=== PATIENT | female | born 2000 | race Caucasian/White ===

== ENCOUNTER 2022-08-06 22:52 | Emergency (ER) | payer BC, OTHER ==
[2022-08-06] MEDS ORDERED: diphenhydrAMINE 50 MG/ML VIAL ONE (23:36)
[2022-08-06] MEDS ORDERED: Famotidine/PF 20 mg/2ml Vial ONE (23:37)
[2022-08-06] MEDS ORDERED: Ketorolac Tromethamine 60 MG/2 ML VIAL ONE (23:37)
[2022-08-06] MEDS ORDERED: methylPREDNISolone Sod Succ 40 MG VIAL ONE (23:37)
== END 2022-08-07 01:07 | disposition home or self-care (01) ==
LOC: NAV ERS 22:52
DX: Z04.1 Encounter for examination and observation following transport accident (principal); L50.0 Allergic urticaria; F17.290 Nicotine dependence, other tobacco product, uncomplicated
CPT/HCPCS: 96374; 96375; J1200; J1885; J2920; S0028